=== PATIENT | male | born 1990 | race Caucasian/White ===

== ENCOUNTER 2019-09-05 13:19 | Outpatient (CLI) | payer OTHER ==
--- NOTE | 2019-09-05 13:55 | RAD ---
Right ankle: 3 VIEWS INDICATION:Medial malleolus stress fracture. COMPARISON:None FINDINGS: Soft tissue swelling laterally and medially. No evidence of fracture. Small spur from the plantar calcaneus. There are small spurs from the medial malleolus and lateral malleolus. A small loose body is seen ant eriorly to the tibiotalar joint on the lateral view probably related to hypertrophic change and there is evidence of small joint effusion. IMPRESSION: No acute fracture. Soft tissue swelling. Degenerative changes which are prominent for age with evidence of joint effusio n.
== END 2019-09-05 13:20 | disposition home or self-care (01) ==
LOC: BICRAD 13:19
PROVIDERS: ATTEND Specialist
DX: M84.371A Stress fracture, right ankle, initial encounter for fracture (principal); M25.471 Effusion, right ankle; M79.89 Other specified soft tissue disorders